=== PATIENT | female | born 1975 | race Caucasian/White ===

== ENCOUNTER 2018-05-18 16:28 | Emergency (ER) | payer BC, OTHER ==
[~2018-05-18] VITALS: Ht 167.6 cm; Wt 94.8 kg
[~2018-05-18 16:28] MED LIST: ALPR0.5T6 PO; HYDR-3237 PO; MULT-257 PO; OXYC-302 PO; TRAM50TA2 PO
[2018-05-18] MEDS ORDERED: OXYcodone/APAP 5/325MG TABLET ONE (16:51)
[2018-05-18] MEDS ORDERED: OXYcodone/APAP 5/325MG TABLET PO ONE (17:00)
[2018-05-18 17:14] LABS: ALBUMIN 3.8 g/dL (3.4-5.0); ANION GAP 7 mmol/L (5-15); CALCIUM 8.8 mg/dL (8.5-10.1); CHLORIDE 108 mmol/L (98-107); CREATININE 0.81 mg/dL (0.55-1.02)
[2018-05-18 17:19] LABS: MEAN CORPUSCULAR HEMOGLOBIN 30.9 pg (27.0-34.8); MEAN CORPUSCULAR HGB CONC 33.4 g/dL (32.4-35.8); MEAN CORPUSCULAR VOLUME 92.5 fL (80-100); RED BLOOD COUNT 4.23 x10^6/uL (3.82-5.3); RED CELL DISTRIBUTION WIDTH 13.3 % (9.6-15.2)
[2018-05-18 17:20] LABS: BASOPHILS % (AUTO) 1 % (0-1); EOSINOPHILS % (AUTO) 7 % (1-7); LYMPHOCYTES # (AUTO) 1.95 x10^3/uL (1-3.4); LYMPHOCYTES % (AUTO) 26 % (22-44); MEAN PLATELET VOLUME 7.3 fL (7.4-10.4); MONOCYTES % (AUTO) 10 % (2-9); NEUTROPHILS # (AUTO) 4.19 x10^3/uL (1.8-6.8); NEUTROPHILS % (AUTO) 56 % (42-75); PLATELET COUNT 434 x10^3/uL (130-400)
[2018-05-18 17:21] LABS: BASOPHILS # (AUTO) 0.07 x10^3/uL (0-0.1); MD NO; MONOCYTES # (AUTO) 0.73 x10^3/uL (0.2-0.8)
[2018-05-18 18:10] VITALS: BP 123/81
== END 2018-05-18 18:38 | disposition home or self-care (01) ==
LOC: ED 17:58
DX: N93.9 Abnormal uterine and vaginal bleeding, unspecified (principal); Z90.710 Acquired absence of both cervix and uterus; Z87.891 Personal history of nicotine dependence
CPT/HCPCS: 36415; 76830; 80048; 82040; 85025; 99284